=== PATIENT | female | born 1995 | race Caucasian/White ===

== ENCOUNTER 2017-10-29 21:32 | Emergency (ER) | payer OTHER ==
[~2017-10-29] VITALS: Ht 167.6 cm; Wt 68.2 kg
[2017-10-29] MEDS ORDERED: AZO95TAB PO (21:41)
[2017-10-29] MEDS ORDERED: propranolol PO (21:41)
[2017-10-29] MEDS ORDERED: SERT25TA PO (21:41)
[2017-10-29] MEDS ORDERED: cranberry PO (21:41)
[2017-10-29] MEDS ORDERED: CIPR-249 PO (22:35)
[2017-10-29] MEDS ORDERED: DIFL150T PO (22:36)
[2017-10-29] MEDS ORDERED: CIPROFLOXACIN 500 MG TAB PO ONE (22:45)
[2017-10-29] MEDS ORDERED: PHENAZOPYRIDINE 100 MG TAB PO ONE (22:45)
[2017-10-29 22:55] VITALS: BP 108/59
== END 2017-10-29 23:05 | disposition home or self-care (01) ==
LOC: M ED 21:32
DX: N10 Acute pyelonephritis (principal); F41.9 Anxiety disorder, unspecified; Z79.899 Other long term (current) drug therapy

== ENCOUNTER → 2017-12-08 | Outpatient (REF) | payer OTHER | LOC: M LAB REF 11:56 | DX: N39.0 Urinary tract infection, site not specified (principal) ==

== ENCOUNTER 2017-12-20 10:57 | Emergency (ER) | payer OTHER ==
[2017-12-20] MEDS: diphenhydrAMINE INJ 50MG/ML VIAL (J1200) IV (12:35)
[2017-12-20] MEDS: NS 1,000 ML IV (12:35)
[2017-12-20] MEDS: METOCLOPRAMIDE INJ 10MG/2ML VIAL (J2765) IV (12:35)
[2017-12-20] MEDS: KETOROLAC 30 MG/ML VIAL (J1885) IV (12:36)
[2017-12-20 12:38] LABS: BASO % 0.4 % (0.0-1.0); EOS % 0.2 % (0.0-3.0); HEMATOCRIT 43.5 % (36.0-47.0); HEMOGLOBIN 14.3 g/dl (12.0-16.0); IMMATURE GRANULOCYTE # 0.1 10^3/uL (0-0); IMMATURE GRANULOCYTE % 0.6 % (0-0); LYMPH # 1.3 10^3/uL (1.5-6.5); LYMPH % 12.6 % (24.0-44.0); MEAN CORPUSCULAR HEMOGLOBIN 29.9 pg (27.0-33.0); MEAN CORPUSCULAR HGB CONC 32.9 g/dl (32.0-36.5); MONO # 0.3 10^3/uL (0.0-0.8); MONO % 3.1 % (0.0-5.0); NEUTROPHILS # 8.7 10^3/uL (1.8-7.7); NEUTROPHILS % 83.1 % (36.0-66.0); PLATELET COUNT, AUTOMATED 293 10^3/uL (150-450); RED BLOOD COUNT 4.78 10^6/uL (4.00-5.40); RED CELL DISTRIBUTION WIDTH 12.3 % (11.5-14.5); WHITE BLOOD COUNT 10.4 10^3/uL (4.0-10.0)
[2017-12-20 12:59] LABS: CONTROL LINE HCG INT CTR LINE PRESENT; HCG, SERUM QUALITATIVE NEGATIVE (NEGATIVE)
[2017-12-20 13:13] LABS: ANION GAP 6 MEQ/L (8-16); BLOOD UREA NITROGEN 9 MG/DL (7-18); CALCIUM LEVEL 8.8 MG/DL (8.5-10.1); CARBON DIOXIDE LEVEL 22 MEQ/L (21-32); CHLORIDE LEVEL 109 MEQ/L (98-107); GLOMERULAR FILTRATION RATE > 60.0 (>60); GLUCOSE, FASTING 77 MG/DL (70-100); MAGNESIUM LEVEL 2.2 MG/DL (1.8-2.4); SODIUM LEVEL 137 MEQ/L (136-145); THYROID STIMULATING HORMONE 0.416 uIU/ML (0.358-3.740)
[2017-12-20 13:23] LABS: POTASSIUM SERUM 5.2 MEQ/L (3.5-5.1)
== END 2017-12-20 15:07 | disposition home or self-care (01) ==
LOC: M ED 10:57
DX: G43.909 Migraine, unspecified, not intractable, without status migrainosus (principal)
CPT/HCPCS: J1200

== ENCOUNTER → 2017-12-28 | Outpatient (CLI) | payer OTHER ==
[2017-12-28 15:33] LABS: HEMATOCRIT 42.9 % (36.0-47.0); HEMOGLOBIN 14.1 g/dl (12.0-16.0); MEAN CORPUSCULAR HEMOGLOBIN 30.1 pg (27.0-33.0); MEAN CORPUSCULAR HGB CONC 32.9 g/dl (32.0-36.5); MEAN CORPUSCULAR VOLUME 91.5 fl (80.0-96.0); PLATELET COUNT, AUTOMATED 303 10^3/uL (150-450); RED BLOOD COUNT 4.69 10^6/uL (4.00-5.40); RED CELL DISTRIBUTION WIDTH 12.3 % (11.5-14.5); WHITE BLOOD COUNT 7.1 10^3/uL (4.0-10.0)
[2017-12-28 16:07] LABS: ALBUMIN 4.5 GM/DL (3.2-5.2); ALBUMIN/GLOBULIN RATIO 1.29 (1.00-1.93); ALKALINE PHOSPHATASE 82 U/L (45-117); ALT/SGPT 22 U/L (12-78); ANION GAP 9 MEQ/L (8-16); AST/SGOT 12 U/L (7-37); BILIRUBIN,TOTAL 1.5 MG/DL (0.2-1.0); BLOOD UREA NITROGEN 11 MG/DL (7-18); CALCIUM LEVEL 9.1 MG/DL (8.5-10.1); CARBON DIOXIDE LEVEL 27 MEQ/L (21-32); CHLORIDE LEVEL 106 MEQ/L (98-107); CREATININE FOR GFR 0.69 MG/DL (0.55-1.30); FREE T4 1.18 NG/DL (0.76-1.46); GLOMERULAR FILTRATION RATE > 60.0 (>60); GLUCOSE, FASTING 82 MG/DL (70-100); POTASSIUM SERUM 4.2 MEQ/L (3.5-5.1); SODIUM LEVEL 142 MEQ/L (136-145); THYROID STIMULATING HORMONE 0.672 uIU/ML (0.358-3.740)
[2017-12-28 16:25] LABS: TOTAL 25(OH) VITAMIN D 26.5 NG/ML (30.0-100.0)
[2017-12-28 16:26] LABS: FOLATE > 24.0 NG/ML; VITAMIN B12 LEVEL 514 PG/ML
== END ==
LOC: M LAB 14:59
DX: R20.2 Paresthesia of skin (principal); G43.009 Migraine without aura, not intractable, without status migrainosus; K58.0 Irritable bowel syndrome with diarrhea

== ENCOUNTER → 2018-06-21 | Outpatient (REF) | payer OTHER ==
[2018-06-21 22:15] LABS: CHLAMYDIA DNA AMPLIFICATION NEGATIVE (NEGATIVE); GC DNA AMPLIFICATION NEGATIVE (NEGATIVE)
== END ==
LOC: M LAB REF 16:30
DX: N39.0 Urinary tract infection, site not specified (principal)
CPT/HCPCS: 87086

== ENCOUNTER → 2018-07-18 | Outpatient (REF) | payer OTHER ==
[2018-07-18 09:59] LABS: BACTERIA, URINE AUTO 1+ (NEGATIVE); RBC, URINE AUTO 1 /HPF (0-3); SQUAMOUS EPITHELIAL CELL UR AU 5 /HPF (0-6); WBC, URINE AUTO 84 /HPF (0-3)
== END ==
LOC: M LAB REF 09:22
DX: N39.0 Urinary tract infection, site not specified (principal)
CPT/HCPCS: 81015

== ENCOUNTER 2018-10-06 17:55 | Emergency (ER) | payer OTHER ==
[2018-10-06 19:14] LABS: BASO % 0.4 % (0.0-1.0); EOS # 0.1 10^3/uL (0.0-0.50); EOS % 1.3 % (0.0-3.0); HEMATOCRIT 41.5 % (36.0-47.0); HEMOGLOBIN 13.7 g/dl (12.0-15.5); IMMATURE GRANULOCYTE % 0.3 % (0-3.0); LYMPH # 1.6 10^3/uL (1.5-6.5); LYMPH % 16.9 % (24.0-44.0); MEAN CORPUSCULAR HEMOGLOBIN 30.3 pg (27.0-33.0); MEAN CORPUSCULAR VOLUME 91.8 fl (80.0-96.0); MONO # 0.6 10^3/uL (0.0-0.8); MONO % 6.4 % (0.0-5.0); NEUTROPHILS # 7.1 10^3/uL (1.8-7.7); NEUTROPHILS % 74.7 % (36.0-66.0); PLATELET COUNT, AUTOMATED 292 10^3/uL (150-450); RED BLOOD COUNT 4.52 10^6/uL (4.00-5.40); RED CELL DISTRIBUTION WIDTH 12.5 % (11.5-14.5); WHITE BLOOD COUNT 9.5 10^3/uL (4.0-10.0)
[2018-10-06 19:24] LABS: CONTROL LINE HCG INT CTR LINE PRESENT; HCG, SERUM QUALITATIVE NEGATIVE (NEGATIVE)
[2018-10-06 19:51] LABS: ANION GAP 6 MEQ/L (8-16); BLOOD UREA NITROGEN 8 MG/DL (7-18); CALCIUM LEVEL 9.2 MG/DL (8.5-10.1); CARBON DIOXIDE LEVEL 28 MEQ/L (21-32); CHLORIDE LEVEL 107 MEQ/L (98-107); CK-MB VALUE MASS < 1.0 NG/ML (<3.6); CPK CREATINE PHOSPHOKINASE 131 U/L (26-192); CREATININE FOR GFR 0.87 MG/DL (0.55-1.30); ETHYL ALCOHOL (ETHANOL) < 0.003 % (0.000-0.010); GLOMERULAR FILTRATION RATE > 60.0 (>60); GLUCOSE, FASTING 83 MG/DL (70-100); MAGNESIUM LEVEL 2.3 MG/DL (1.8-2.4); MB/CK RELATIVE INDEX 0.76 (< OR =4); POTASSIUM SERUM 4.7 MEQ/L (3.5-5.1); SODIUM LEVEL 141 MEQ/L (136-145); THYROID STIMULATING HORMONE 0.299 uIU/ML (0.358-3.740); TROPONIN I < 0.02 NG/ML (< 0.10)
[2018-10-06 20:01] LABS: AMPHETAMINES LEVEL URINE NEGATIVE (NEGATIVE); BARBITURATES URINE NEGATIVE (NEGATIVE); BENZODIAZEPINES URINE NEGATIVE (NEGATIVE); CANNABINOIDS URINE POSITIVE (NEGATIVE); COCAINE METABOLITE URINE NEGATIVE (NEGATIVE); METHADONE URINE NEGATIVE (NEGATIVE); OPIATES URINE NEGATIVE (NEGATIVE); PHENCYCLIDINE URINE NEGATIVE (NEGATIVE)
[2018-10-06] MEDS: NS 1,000 ML IV ×2 (20:42→21:50)
[2018-10-06 21:23] LABS: FREE T4 1.14 NG/DL (0.76-1.46)
[2018-10-06] MEDS: KETOROLAC 30 MG/ML VIAL (J1885) IV (21:40)
[2018-10-06] MEDS: diphenhydrAMINE INJ 50MG/ML VIAL (J1200) IV (21:40)
== END 2018-10-06 23:12 | disposition home or self-care (01) ==
LOC: M ED 17:55
DX: G43.909 Migraine, unspecified, not intractable, without status migrainosus (principal); I95.1 Orthostatic hypotension; K58.9 Irritable bowel syndrome, unspecified; Z98.890 Other specified postprocedural states; Z79.899 Other long term (current) drug therapy; Z82.0 Family history of epilepsy and other diseases of the nervous system
CPT/HCPCS: J1200

== ENCOUNTER 2018-11-21 14:11 | Emergency (ER) | payer OTHER ==
[~2018-11-21] VITALS: Ht 167.6 cm; Wt 61.1 kg
[~2018-11-21 14:11] MED LIST: AZO95TAB PO; CIPR-249 PO; DIFL150T PO; SERT25TA PO; cranberry PO; propranolol PO
--- NOTE | 2018-11-21 15:02 | REP ---
CT Head without contrast HISTORY: Right facial numbness COMPARISON: 10/06/2018 There is no intraparenchymal hemorrhage, acute infarct, mass or midline shift. The ventricular system is normal in appearance. There is no extra cerebral collection. There is no fracture. The visualized sinuses are clear. IMPRESSION: There is no intracranial lesion. Electronically Signed by Eriberto Oakes MD 11/21/2018 02:54 P
[2018-11-21] MEDS ORDERED: diphenhydrAMINE INJ 50MG/ML VIAL (J1200) IV STA (15:06)
[2018-11-21 15:08] LABS: BASO # 0.1 10^3/uL (0.0-0.2); BASO % 0.6 % (0.0-1.0); EOS # 0.1 10^3/uL (0.0-0.50); EOS % 1.2 % (0.0-3.0); HEMATOCRIT 42.6 % (36.0-47.0); HEMOGLOBIN 14.1 g/dl (12.0-15.5); LYMPH # 2.5 10^3/uL (1.5-6.5); LYMPH % 27.4 % (24.0-44.0); MEAN CORPUSCULAR HEMOGLOBIN 30.8 pg (27.0-33.0); MEAN CORPUSCULAR HGB CONC 33.1 g/dl (32.0-36.5); MONO # 0.7 10^3/uL (0.0-0.8); MONO % 7.8 % (0.0-5.0); NEUTROPHILS # 5.6 10^3/uL (1.8-7.7); NEUTROPHILS % 62.4 % (36.0-66.0); PLATELET COUNT, AUTOMATED 260 10^3/uL (150-450); RED BLOOD COUNT 4.58 10^6/uL (4.00-5.40)
[2018-11-21] MEDS ORDERED: PROMETHAZINE INJ 25 MG/ML VIAL (J2550) IV ONE (15:15)
[2018-11-21] MEDS ORDERED: KETOROLAC 30 MG/ML VIAL (J1885) IV ONE (15:15)
[2018-11-21 15:47] LABS: ALBUMIN 4.1 GM/DL (3.2-5.2); ALT/SGPT 55 U/L (12-78); BILIRUBIN,DIRECT 0.3 MG/DL (0.0-0.2); BILIRUBIN,TOTAL 1.4 MG/DL (0.2-1.0); BLOOD UREA NITROGEN 8 MG/DL (7-18); CALCIUM LEVEL 9.1 MG/DL (8.5-10.1); CARBON DIOXIDE LEVEL 24 MEQ/L (21-32); CHLORIDE LEVEL 106 MEQ/L (98-107); CK-MB VALUE MASS < 1.0 NG/ML (<3.6); CPK CREATINE PHOSPHOKINASE 9403 U/L (26-192); CREATININE FOR GFR 0.84 MG/DL (0.55-1.30); GLOMERULAR FILTRATION RATE > 60.0 (>60); GLUCOSE, FASTING 80 MG/DL (70-100); MB/CK RELATIVE INDEX 0.01 (< OR =4); POTASSIUM SERUM 4.1 MEQ/L (3.5-5.1); SODIUM LEVEL 139 MEQ/L (136-145); THYROID STIMULATING HORMONE 0.631 uIU/ML (0.358-3.740); TOTAL PROTEIN 7.5 GM/DL (6.4-8.2); TROPONIN I < 0.02 NG/ML (< 0.10)
[2018-11-21 17:30] VITALS: BP 100/56
--- NOTE | 2018-11-21 20:25 | ECGEPIP ---
Stationary ECG Study [facility] - ED Test Date: 2018-11-21 Pat Name: ERNESTO UNDERWOOD Department: Room: - Gender: F Long Term: TC : 1995 Requested By: MILO Vega Order Number: [id number] Reading MD: Misti Chirinos Measurements Intervals Thornton Rate: 57 P: 57 CT: 126 QRS: 45 QRSD: 85 T: 14 QT: 425 QTc: 414 Interpretive Statements SINUS BRADYCARDIA SIMILAR 09/26/18 Electronically Signed On 11-21-2018 20:24:47 EST by Misti Chirinos
[2018-11-23 11:42] LABS: HEPATITIS A ANTIBODY IGM NEGATIVE (NEGATIVE); HEPATITIS B CORE ANTIBODY IGM NEGATIVE (NEGATIVE); HEPATITIS B SURFACE ANTIGEN NEGATIVE (NEGATIVE); HEPATITIS C VIRUS ABY INDEX 0.1 INDEX (<0.8); HIV 1&2 SCREEN CENTAUR NEGATIVE (NEGATIVE)
== END 2018-11-21 17:52 | disposition home or self-care (01) ==
LOC: M ED 14:11
DX: G43.809 Other migraine, not intractable, without status migrainosus (principal); Z79.899 Other long term (current) drug therapy
CPT/HCPCS: 70450; 80048; 80076; 82550; 82553; 84443; 84484; 85025; 86705; 86709; 86803; 87340; 87389; 93005; 93041; 94760; 96374; 96375; 99285; J1200; J1885

== ENCOUNTER → 2018-12-12 | Outpatient (REF) | payer OTHER ==
[2018-12-12 11:57] LABS: APPEARANCE, URINE CLOUDY (CLEAR); BACTERIA, URINE AUTO NEGATIVE (NEGATIVE); BILIRUBIN, URINE AUTO NEGATIVE (NEGATIVE); BLOOD, URINE BLOOD 2+ (NEGATIVE); COLOR, URINE YELLOW (YELLOW); GLUCOSE, URINE (UA) AUTO NEGATIVE (NEGATIVE); KETONE, URINE AUTO NEGATIVE (NEGATIVE); LEUKOCYTE ESTERASE, URINE AUTO 2+ (NEGATIVE); MUCUS, URINE SMALL (NEGATIVE); NITRITE, URINE AUTO NEGATIVE (NEGATIVE); PROTEIN, URINE AUTO NEGATIVE (NEGATIVE); RBC, URINE AUTO 16 /HPF (0-3); SPECIFIC GRAVITY URINE AUTO 1.021 (1.002-1.035); SQUAMOUS EPITHELIAL CELL UR AU 6 /HPF (0-6); WBC, URINE AUTO TNTC /HPF (0-3)
== END ==
LOC: M LAB REF 11:14
PROVIDERS: ATTEND Physician Assistant
DX: N39.0 Urinary tract infection, site not specified (principal)

== ENCOUNTER → 2018-12-17 | Outpatient (REF) | payer OTHER ==
[2018-12-17 22:53] LABS: CHLAMYDIA DNA AMPLIFICATION NEGATIVE (NEGATIVE); GC DNA AMPLIFICATION NEGATIVE (NEGATIVE)
== END ==
LOC: M LAB REF 18:13
PROVIDERS: ATTEND Family Medicine
DX: Z11.3 Encounter for screening for infections with a predominantly sexual mode of transmission (principal)

== ENCOUNTER → 2019-01-29 | Outpatient (REF) | payer OTHER | LOC: M LAB REF 11:43 | PROVIDERS: ATTEND Physician Assistant | DX: R30.0 Dysuria (principal) ==

== ENCOUNTER → 2019-04-10 | Outpatient (CLI) | payer OTHER ==
[~2019-04-10] MED LIST changes: -SERT25TA PO; +SERT25TA85 PO
== END ==
LOC: M SMT 09:49
PROVIDERS: ATTEND Advanced Practice Midwife
DX: Z31.438 Encounter for other genetic testing of female for procreative management (principal)

== ENCOUNTER → 2019-05-21 | Outpatient (REF) | payer OTHER | LOC: M LAB REF 17:12 | PROVIDERS: ATTEND Physician Assistant | DX: N39.0 Urinary tract infection, site not specified (principal) ==

== ENCOUNTER → 2019-06-16 | Outpatient (REF) | payer OTHER | LOC: M LAB REF 10:13 | PROVIDERS: ATTEND Physician Assistant | DX: R30.0 Dysuria (principal) ==

== ENCOUNTER → 2019-12-10 | Outpatient (CLI) | payer OTHER ==
[2019-12-10 13:56] LABS: BASO # 0.1 10^3/uL (0.0-0.2); BASO % 0.6 % (0.0-1.0); EOS # 0.1 10^3/uL (0.0-0.5); EOS % 0.8 % (0.0-3.0); HEMOGLOBIN 12.8 g/dl (12.0-15.5); LYMPH # 1.9 10^3/uL (1.5-5.0); LYMPH % 19.1 % (24.0-44.0); MEAN CORPUSCULAR HEMOGLOBIN 32.2 pg (27.0-33.0); MEAN CORPUSCULAR HGB CONC 33.7 g/dl (32.0-36.5); MEAN CORPUSCULAR VOLUME 95.7 fl (80.0-96.0); MONO # 0.6 10^3/uL (0.0-0.8); MONO % 6.6 % (0.0-5.0); NEUTROPHILS % 72.1 % (36.0-66.0); PLATELET COUNT, AUTOMATED 232 10^3/uL (150-450); RED BLOOD COUNT 3.97 10^6/uL (4.00-5.40); WHITE BLOOD COUNT 9.8 10^3/uL (4.0-10.0)
[2019-12-10 14:33] LABS: TOTAL 25(OH) VITAMIN D 31.1 NG/ML (30.0-100.0)
--- NOTE | 2019-12-10 18:58 | REP ---
FIRST TRIMESTER OB ULTRASOUND: 12/10/2019. Comparison: 10/16/2019. Previous study showed a gestational sac without yolk sac or pole and was at about 4 weeks 4 days size. Today's study shows a single intrauterine gestation with gestational sac in the body and fundus of the uterus. Uterus is anteverted. There is a pole with a crown-rump length of 6.5 cm corresponding to 12 weeks 6 days size and matching LMP. heart activity noted at 164 biometry BPD 2.3 cm 13 weeks 6 days HC 8.1 cm 13 weeks 3 days HC 8.1 cm 13 weeks 3 days AC 6.2 cm 13 weeks FL 1.1 cm 13 weeks 2 days HL 1.2 cm 13 weeks. This gives average ultrasound age 13 weeks 2 days with EDC 06/14/2020. Measurement ratios normal. The heart activity 164 limited anatomy evaluation due to early gestational age. No gross anomalies. No subchorionic bleed or pelvic free fluid. Impression: 1. Single intrauterine gestation at 13 weeks 2 days by composite ultrasound criteria with EDC 06/14/2020 based on that exam, 06/17/2020, based on LMP. 2. heart rate 164 regular. No subchorionic bleed, pelvic mass or free fluid. 3. No abnormalities in the cul-de-sac or adnexal regions. Electronically Signed by Bunny Stevens MD 12/10/2019 07:27 P
[2019-12-11 10:10] LABS: HEPATITIS B SURFACE ANTIBODY NEGATIVE (POSITIVE)
[2019-12-11 10:19] LABS: RUBELLA IgG QUALITATIVE EQUIVOCAL (IMMUNE)
[2019-12-11 10:49] LABS: HEPATITIS C VIRUS ABY INDEX < 0.0 INDEX (<0.8); HIV 1&2 SCREEN CENTAUR NEGATIVE (NEGATIVE)
== END ==
LOC: M RAD 12:43
PROVIDERS: ATTEND Advanced Practice Midwife
DX: Z36.89 Encounter for other specified antenatal screening (principal); Z3A.12 12 weeks gestation of pregnancy

== ENCOUNTER 2020-01-31 19:13 | Emergency (ER) | payer OTHER ==
[~2020-01-31] VITALS: Ht 167.6 cm; Wt 67.1 kg
[2020-01-31] MEDS ORDERED: diphenhydrAMINE INJ 50MG/ML VIAL (J1200) IV ONE (19:45)
[2020-01-31] MEDS ORDERED: ONDANSETRON 4MG/2ML VIAL (J2405) IV ONE (19:45)
[2020-01-31] MEDS ORDERED: NS 1,000 ML IV ONE (19:45)
[2020-01-31 20:58] LABS: BASO # 0.1 10^3/uL (0.0-0.2); BASO % 0.6 % (0.0-1.0); EOS # 0.2 10^3/uL (0.0-0.5); EOS % 1.9 % (0.0-3.0); HEMATOCRIT 39.7 % (36.0-47.0); HEMOGLOBIN 13.2 g/dl (12.0-15.5); LYMPH # 2.3 10^3/uL (1.5-5.0); LYMPH % 22.6 % (24.0-44.0); MEAN CORPUSCULAR HEMOGLOBIN 31.5 pg (27.0-33.0); MEAN CORPUSCULAR HGB CONC 33.2 g/dl (32.0-36.5); MEAN CORPUSCULAR VOLUME 94.7 fl (80.0-96.0); MONO # 0.7 10^3/uL (0.0-0.8); NEUTROPHILS # 6.8 10^3/uL (1.5-8.5); NEUTROPHILS % 66.8 % (36.0-66.0); PLATELET COUNT, AUTOMATED 245 10^3/uL (150-450); RED BLOOD COUNT 4.19 10^6/uL (4.00-5.40); WHITE BLOOD COUNT 10.2 10^3/uL (4.0-10.0)
[2020-01-31 21:22] LABS: ALBUMIN 3.1 GM/DL (3.2-5.2); ALT/SGPT 18 U/L (12-78); BILIRUBIN,DIRECT < 0.1 MG/DL (0.0-0.2); BILIRUBIN,TOTAL 0.4 MG/DL (0.2-1.0); BLOOD UREA NITROGEN 11 MG/DL (7-18); CALCIUM LEVEL 8.1 MG/DL (8.5-10.1); CARBON DIOXIDE LEVEL 21 MEQ/L (21-32); CHLORIDE LEVEL 110 MEQ/L (98-107); CREATININE FOR GFR 0.69 MG/DL (0.55-1.30); GLOMERULAR FILTRATION RATE > 60.0 (>60); GLUCOSE, FASTING 79 MG/DL (70-100); MAGNESIUM LEVEL 1.8 MG/DL (1.8-2.4); POTASSIUM SERUM 4.2 MEQ/L (3.5-5.1); SODIUM LEVEL 139 MEQ/L (136-145); TOTAL PROTEIN 6.5 GM/DL (6.4-8.2)
[2020-01-31] MEDS ORDERED: NORCO, ANEXSIA 5/325MG TABLET (HYDROcodone/ACETAMINOPHEN) PO ONE (22:00)
[2020-01-31] MEDS ORDERED: ONDA4TAB6 PO (23:08)
[2020-01-31 23:37] VITALS: BP 103/57
== END 2020-01-31 23:38 | disposition home or self-care (01) ==
LOC: M ED 19:13
DX: O99.352 Diseases of the nervous system complicating pregnancy, second trimester (principal); G43.709 Chronic migraine without aura, not intractable, without status migrainosus; Z3A.21 21 weeks gestation of pregnancy; O21.9 Vomiting of pregnancy, unspecified; O99.612 Diseases of the digestive system complicating pregnancy, second trimester; K58.9 Irritable bowel syndrome, unspecified; O99.342 Other mental disorders complicating pregnancy, second trimester; F41.9 Anxiety disorder, unspecified
CPT/HCPCS: 36415; 80048; 80076; 83735; 85025; 96374; 96375; 99284; J1200; J2405

== ENCOUNTER → 2020-02-21 | Outpatient (REF) | payer OTHER ==
[~2020-02-21] MED LIST changes: +ONDA4TAB6 PO
== END ==
LOC: M LAB REF 15:21
PROVIDERS: ATTEND Physician Assistant
DX: N39.0 Urinary tract infection, site not specified (principal)

== ENCOUNTER 2020-03-01 02:18 | Outpatient (CLI) | payer OTHER ==
[~2020-03-01] VITALS: Ht 167.6 cm; Wt 70.9 kg
[2020-03-01 02:40] VITALS: BP 110/64
[2020-03-01] MEDS ORDERED: TUMS500C PO (02:53)
[2020-03-01] MEDS ORDERED: PRENTAB9 PO (02:53)
[2020-03-01] MEDS ORDERED: MACR100C43 PO (02:55)
[2020-03-01] MEDS ORDERED: PYRI1TAB5 PO (02:55)
[2020-03-01] MEDS ORDERED: LACTATED RINGER'S 1000 ML IV STA (03:25)
[2020-03-01] MEDS ORDERED: LR 1,000 ML IV SCH (03:25)
[2020-03-01] MEDS ORDERED: PERCOCET 5MG/325MG TAB PO PRN (03:30)
[2020-03-01 03:59] LABS: BASO # 0.1 10^3/uL (0.0-0.2); BASO % 0.6 % (0.0-1.0); EOS # 0.3 10^3/uL (0.0-0.5); EOS % 1.8 % (0.0-3.0); HEMATOCRIT 37.2 % (36.0-47.0); HEMOGLOBIN 12.3 g/dl (12.0-15.5); LYMPH # 2.2 10^3/uL (1.5-5.0); LYMPH % 15.6 % (24.0-44.0); MEAN CORPUSCULAR HGB CONC 33.1 g/dl (32.0-36.5); MEAN CORPUSCULAR VOLUME 96.9 fl (80.0-96.0); MONO # 0.9 10^3/uL (0.0-0.8); MONO % 6.6 % (0.0-5.0); NEUTROPHILS # 10.2 10^3/uL (1.5-8.5); NEUTROPHILS % 72.3 % (36.0-66.0); PLATELET COUNT, AUTOMATED 240 10^3/uL (150-450); RED BLOOD COUNT 3.84 10^6/uL (4.00-5.40); WHITE BLOOD COUNT 14.1 10^3/uL (4.0-10.0)
--- NOTE | 2020-03-01 04:16 | REPVR ---
PROCEDURE INFORMATION: Exam: US Retroperitoneal Limited, Kidneys Exam date and time: 03/01/2020 4:06 AM Age: 24 years old Clinical indication: Abdominal pain; Flank; Right; ; Additional info: 24 weeks , right flank pain TECHNIQUE: Imaging protocol: Real-time ultrasound of the retroperitoneum with image documentation. Examination was focused on the kidneys. COMPARISON: No relevant prior studies available. FINDINGS: Right kidney: The right kidney measures 11.1 cm in. The echogenicity is normal. There is mild hydronephrosis. No stones are identified. Left kidney: The left kidney measures 10.4 cm in length. The echogenicity is normal. There is a nonshadowing echogenic focus in the midpole which may represent a small nonobstructing stone. Uterus: A live fetus is seen within the gravid uterus, but the was not fully assessed. A heartbeat was detected with a rate of 158 bpm. The lie is vertex. Bladder: The bladder is unremarkable. No stones identified. Bilateral ureteral jets are identified. IMPRESSION: Mild right-sided hydronephrosis. No obstructing stones identified. Electronically signed by: Bianca Boyer On 03/01/2020 04:15:52 AM
[2020-03-01 04:32] LABS: ALBUMIN 2.8 GM/DL (3.2-5.2); ALT/SGPT 26 U/L (12-78); BILIRUBIN,TOTAL 0.4 MG/DL (0.2-1.0); BLOOD UREA NITROGEN 12 MG/DL (7-18); CALCIUM LEVEL 8.5 MG/DL (8.5-10.1); CARBON DIOXIDE LEVEL 24 MEQ/L (21-32); CHLORIDE LEVEL 107 MEQ/L (98-107); CREATININE FOR GFR 0.53 MG/DL (0.55-1.30); GLOMERULAR FILTRATION RATE > 60.0 (>60); GLUCOSE, FASTING 65 MG/DL (70-100); POTASSIUM SERUM 5.1 MEQ/L (3.5-5.1); SODIUM LEVEL 139 MEQ/L (136-145); TOTAL PROTEIN 6.5 GM/DL (6.4-8.2)
[2020-03-01 05:11] VITALS: BP 98/51
[2020-03-01] MEDS ORDERED: NITR-67 PO (06:28)
[2020-03-01] MEDS ORDERED: OXYC1TAB23 PO (06:29)
--- NOTE | 2020-03-01 09:05 | HPE ---
DATE OF ADMISSION: 03/01/2020 24-year-old 2, para 0-0-1-0 female at 24 weeks gestation who presents with constant severe right flank pain that radiates to the front for the last 24 hours. She has had some nausea. No vaginal bleeding. She was treated for a urinary tract infection on February 21, 2020 with Macrobid. Urine culture subsequently did confirm E. Coli in the urinary tract infection. She denies fevers. Her care is currently through a director of player personnel in [place], [place]. MEDICAL HISTORY: 1. Migraines. 2. Irritable bowel syndrome. 3. Frequent urinary tract infections. 4. Jonathan-Danlos syndrome. SURGICAL HISTORY: 1. diagnostic laparoscopy for endometriosis, 2017. ALLERGIES: No known drug allergies. SOCIAL HISTORY: She is . She denies cigarettes, alcohol or drug use. She lives in [place]. FAMILY HISTORY: Noncontributory. PHYSICAL EXAMINATION: Blood pressure 120/70, pulse 80, afebrile. She appears moderately uncomfortable. Head and neck exam normal. Lungs clear. Heart regular rate and rhythm . Abdomen is nontender, positive right CVA tenderness. Extremities nontender. LABS: Creatinine 0.53, white blood count 14.1. Ultrasound reveals mild right hydronephrosis, evidence of possible kidney stone on the left side. ASSESSMENT: 24-year-old G2, P0-0-1-0 female at 24 weeks gestation who presents with probable right nephrolithiasis as well as urinary tract infection. PLAN: Clinically this appears to be a stone. The patient is on Pyridium so a repeat urinalysis was not sent at this visit. She had a very recent urinalysis and culture sent. Plan is to manage symptomatically with pain management for probable kidney stones. Due to history of recurrent frequent UTIs, would recommend suppression with Macrobid daily throughout . Recommend she seek medical care for her due to this complicating factor. MTDD
== END 2020-03-01 06:44 | disposition home or self-care (01) ==
LOC: M LDO 02:18
PROVIDERS: ATTEND Specialist
DX: O26.892 Other specified pregnancy related conditions, second trimester (principal); N20.0 Calculus of kidney; O23.42 Unspecified infection of urinary tract in pregnancy, second trimester; Z3A.24 24 weeks gestation of pregnancy; O99.612 Diseases of the digestive system complicating pregnancy, second trimester; K58.9 Irritable bowel syndrome, unspecified
CPT/HCPCS: 76775; 80053; 85025; 96360; 96361; G0378; G0463

== ENCOUNTER → 2020-03-13 | Outpatient (CLI) | payer OTHER ==
[~2020-03-13] MED LIST changes: +MACR100C43 PO; +NITR-67 PO; +OXYC1TAB23 PO; +PRENTAB9 PO; +PYRI1TAB5 PO; +TUMS500C PO
[2020-03-18 00:10] LABS: HSV IgM TYPES 1&2 0.92 Ratio (0.00-0.90); HSV TYPE I IgG SPECIFIC <0.91 index (0.00-0.90); HSV TYPE II IgG SPECIFIC <0.91 index (0.00-0.90)
== END ==
LOC: M LAB 03-11 15:35
PROVIDERS: ATTEND Advanced Practice Midwife
DX: Z34.92 Encounter for supervision of normal pregnancy, unspecified, second trimester (principal)

== ENCOUNTER 2020-05-04 13:43 | Inpatient (IN) | payer OTHER ==
[~2020-05-04] VITALS: Ht 167.6 cm; Wt 71.9 kg
[2020-05-04] VITALS (13 sets, daily range): BP systolic 99–131; BP diastolic 54–77
[2020-05-04] MEDS ORDERED: LR 1,000 ML IV SCH (14:24)
[2020-05-04] MEDS ORDERED: LACTATED RINGER'S 1000 ML IV STA (14:24)
[2020-05-04] MEDS ORDERED: MAG Sulf (L&D) 4 GM/100 ML 4 GM in IV 1 EA IV ONE (14:30)
[2020-05-04] MEDS ORDERED: MAG Sulf (OBGYN) 20GM/500ML 20,000 MG in IV 1 EA IV SCH (14:44)
[2020-05-04 14:56] LABS: BASO # 0.1 10^3/uL (0.0-0.2); BASO % 0.4 % (0.0-1.0); EOS # 0.1 10^3/uL (0.0-0.5); HEMATOCRIT 38.2 % (36.0-47.0); HEMOGLOBIN 12.8 g/dl (12.0-15.5); LYMPH # 1.6 10^3/uL (1.5-5.0); LYMPH % 13.8 % (24.0-44.0); MEAN CORPUSCULAR HEMOGLOBIN 31.2 pg (27.0-33.0); MEAN CORPUSCULAR HGB CONC 33.5 g/dl (32.0-36.5); MEAN CORPUSCULAR VOLUME 93.2 fl (80.0-96.0); MONO # 0.8 10^3/uL (0.0-0.8); MONO % 6.9 % (0.0-5.0); NEUTROPHILS # 8.7 10^3/uL (1.5-8.5); NEUTROPHILS % 75.5 % (36.0-66.0); PLATELET COUNT, AUTOMATED 231 10^3/uL (150-450); WHITE BLOOD COUNT 11.5 10^3/uL (4.0-10.0)
[2020-05-04] MEDS ORDERED: BETAMETHASONE SOLUSPAN 6MG/ML 5ML VIAL (J0702 PER 3MG) IM SCH (15:00)
[2020-05-04] MEDS ORDERED: AMPICILLIN 2 GM VIAL (J0290 PER 500MG) As Ordered ONE (15:51)
[2020-05-04 15:57] LABS: ALT/SGPT 11 U/L (12-78); BILIRUBIN,TOTAL 0.5 MG/DL (0.2-1.0); CREATININE FOR GFR 0.22 MG/DL (0.55-1.30); GLOMERULAR FILTRATION RATE > 60.0 (>60); LDH LACTATE DEHYDROGENASE 141 U/L (84-246); URIC ACID 2.3 MG/DL (2.6-6.0)
[2020-05-04] MEDS ORDERED: AMPICILLIN SOD 2 GM in D5W MINI-BAG PLUS 100 ML IV ONE (16:00)
[2020-05-04] MEDS ORDERED: MORPHINE PRES-FREE INJ 10 MG/10 ML VIAL (J2274) As Ordered ONE (17:37)
[2020-05-04] MEDS ORDERED: OXYTOCIN INJ 10 UNITS/ML VIAL (J2590) As Ordered ONE (17:39)
[2020-05-04] MEDS ORDERED: ceFAZolin SOD 1 GM in D5W MINI-BAG PLUS 50 ML IV ONE (17:45)
[2020-05-04] MEDS ORDERED: BICITRA 30ML SOLN UDC PO ONE (17:45)
[2020-05-04] MEDS ORDERED: diphenhydrAMINE 50MG/ML VIAL (J1200) IV PRN (17:59)
[2020-05-04] MEDS ORDERED: ONDANSETRON 4MG/2ML VIAL IV PRN (17:59)
[2020-05-04] MEDS ORDERED: METOCLOPRAMIDE INJ 10MG/2ML VIAL (J2765 PER 1) IV PRN (17:59)
[2020-05-04] MEDS ORDERED: NALOXONE INJ 0.4MG/1ML VIAL (J2310 PER 1MG) IV PRN ×2 (17:59)
[2020-05-04] MEDS ORDERED: NALBUPHINE HCL 10 MG/ML AMP (J2300) IV PRN (17:59)
[2020-05-04] MEDS ORDERED: ePHEDrine SULFATE 25 MG/5 ML(5MG/ML) SYRINGE As Ordered ONE (18:13)
[2020-05-04] MEDS ORDERED: dexameTHASONE 4 MG/ML 1ML VIAL (J1100 PER 1MG) As Ordered ONE (18:16)
[2020-05-04] MEDS ORDERED: PHENYLephrine HCL 500 MCG/5 ML (100MCG/ML) SYRINGE (J2370) As Ordered ONE ×2 (18:22→18:27)
[2020-05-04 18:29] LABS: CORD GAS ABE A -2.6; CORD GAS ABE V -3.1; CORD GAS HCO3 A 24.3 MEQ/L; CORD GAS HCO3 V 23.4 MEQ/L; CORD GAS O2 SAT A 40.1 %; CORD GAS O2 SAT V 67.2 %; CORD GAS PCO2 A 50.4 mmHg; CORD GAS PCO2 V 47.2 mmHg; CORD GAS PH A 7.301 UNITS; CORD GAS PH V 7.313 UNITS; CORD GAS PO2 V 28.9 mmHg; CORD GAS SBC V 21.2 MEQ/L; CORD GAS TCO2 A 25.8 MEQ/L; CORD GAS TCO2 V 24.8 MEQ/L
[2020-05-04] MEDS ORDERED: OXYTOCIN DRIP 30 UNITS in IV 1 EA IV SCH (18:47)
[2020-05-04] MEDS ORDERED: SCOPOLAMINE 1MG TRANSDERMAL PATCH TOP ONE (19:00)
[2020-05-04] MEDS ORDERED: RHOGAM 300 MCG (1500 IU) INJ (J2790) IM SCH (19:00)
[2020-05-04] MEDS ORDERED: MEASLES,MUMPS,RUBELLA VACCINE INJ (MMR-II) (90707) SC SCH (19:00)
[2020-05-04] MEDS ORDERED: AMPICILLIN SOD 1 GM in D5W MINI-BAG PLUS 50 ML IV SCH (20:00)
--- NOTE | 2020-05-04 21:04 | HPE ---
DATE OF ADMISSION: 05/04/2020 Sindy is a 24-year-old female 2, para 0-0-1-0 who is with an estimated date of confinement (EDC) of 06/17/2020, EGA 34 weeks' gestation who is receiving care via pot annealer program. The patient presented to labor and delivery with complaints of contractions every 4-5 minutes and bleeding. As per the patient, she has been experiencing contraction for the last week or two which has gotten worse. She also gives the history of leaking fluid. She was never evaluated for the above complaint. However, today her bleeding has gotten worse and her pain has gotten more severe. Upon further evaluation in labor and delivery, she was found to be 4 cm 100% effaced, fetus at -3 station in the vertex position. In the computer she, was evaluated for possible herpes infection. Her IgM was equivocal. She does give a history of cold sores in her mouth and unsure if the lesion she has had in her vagina was active herpes. She was never treated for herpes infection. Her full history reviewed, as well as the partial record we have from the pot annealer. The patient's blood type was B+ positive. We do not have hepatitis or HIV status on this patient. She did not have a one-hour sugar testing. PAST MEDICAL HISTORY: Denies. PAST SURGICAL HISTORY: Denies. SOCIAL HISTORY: The patient has a history of positive drug use, but denies any alcohol. REVIEW OF SYSTEMS: Unremarkable. FAMILY HISTORY: Unremarkable. PHYSICAL EXAMINATION: Normal-appearing female in no acute distress. HEENT: Grossly within normal limits. Abdomen: Soft, nontender, nondistended. Gravid. Extremities: No clubbing, cyanosis or edema. Vaginal exam: Gross vaginal bleeding, but not profuse on digital exam she was found to be 100% effaced, 4 cm dilated, fetus at -3 station. Tracing reviewed, category one tracing with contractions every 4-5 minutes. The patient is also moving all over the bed, unable to keep the monitor for any extended period of time. ASSESSMENT: Intrauterine at 34 weeks' gestation. GBS status unknown. Active labor. No evidence of rupture of membrane, vaginal spotting most likely secondary to labor. 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 PLAN: The patient and her partner counseled extensively given that she had an equivocal testing done in February for herpes simplex virus (HSV) 1 and 2 and her prior history of oral herpes, we did discuss the risk and benefits of having a recent herpes infection and the mode of delivery. The patient and her partner wishes to proceed with section if labor cannot be stopping. The likelihood of stopping her labor also discussed which is minimal at this point, but we will consider magnesium sulfate, as well as IV fluid hydration and betamethasone as there are no signs of infection. The patient fully understand and aware of the risk of both vaginal and section, as well as delivery. She is aware that the baby will be in the NICU at the very least 2-3 weeks. A neonatology consult also obtained.
[2020-05-05] VITALS (7 sets, daily range): BP systolic 97–108; BP diastolic 51–61
[2020-05-05] MEDS: PRENATAL VITAMINS CHEWABLE TABLET PO SCH (08:10)
[2020-05-05 08:12] LABS: HEMATOCRIT 34.9 % (36.0-47.0); HEMOGLOBIN 11.8 g/dl (12.0-15.5); MEAN CORPUSCULAR HEMOGLOBIN 31.8 pg (27.0-33.0); MEAN CORPUSCULAR HGB CONC 33.8 g/dl (32.0-36.5); MEAN CORPUSCULAR VOLUME 94.1 fl (80.0-96.0); PLATELET COUNT, AUTOMATED 201 10^3/uL (150-450); RED BLOOD COUNT 3.71 10^6/uL (4.00-5.40); WHITE BLOOD COUNT 21.1 10^3/uL (4.0-10.0)
[2020-05-05] MEDS: PERCOCET 5MG/325MG TAB PO PRN ×2 (14:07→21:51)
[2020-05-05] MEDS: DOCUSATE SODIUM 100 MG CAP PO PRN (21:50)
[2020-05-06 02:16] VITALS: BP 101/53
[2020-05-06 05:50] VITALS: BP 100/57
[2020-05-06 06:08] LABS: HSV TYPE I IgG SPECIFIC <0.91 index (0.00-0.90); HSV TYPE II IgG SPECIFIC <0.91 index (0.00-0.90)
[2020-05-06] MEDS: PRENATAL VITAMINS CHEWABLE TABLET PO SCH (07:38)
[2020-05-06] MEDS: IBUPROFEN 800 MG TAB PO PRN ×2 (07:39→19:59)
--- NOTE | 2020-05-06 10:21 | RO ---
DATE OF PROCEDURE: 05/04/2020 Sindy is a 24-year-old female, 2, para 0-0-1-0, who was admitted at 34 weeks gestation in active labor. She has a history of recent herpes infection. At this point given the history of herpes infection, she was counseled extensively and the risks and benefits were discussed. The patient and her partner opt to proceed with delivery via primary section. She also broke through magnesium sulfate to help stop her labor. PREOPERATIVE DIAGNOSES: 1. Active labor. 2. Recent HSV infection. POSTOPERATIVE DIAGNOSES: 1. Active labor. 2. Recent HSV infection. PROCEDURE: Primary low transverse section. SURGEON: Dr. pAolinar Larsen JAIL KEEPER: Cathleen Crowe CNM ANESTHESIA: Spinal. COMPLICATIONS: None. ESTIMATED BLOOD LOSS: 500 mL. FINDINGS: Live male infant in occiput anterior position. Apgars 8, 6 and 9. weight 5 pounds 5 ounces. Placenta removed manually intact. Three-vessel cord. Normal-appearing tubes and ovaries. DESCRIPTION OF PROCEDURE: After obtaining informed consent, the patient was taken to the operating room where spinal anesthetic was found to be adequate. She was then draped and prepped in the usual sterile fashion in the supine position. At this point, a Pfannenstiel incision was made with the help of Cathleen Crowe. The incision was carried down to the fascia. Fascia was incised in midline fashion and carried through laterally. Superior aspect of the fascia was grasped with two Gonzalo clamps, tented off and dissected off the rectus muscles sharply. The inferior aspect was dissected off in a similar fashion. Rectus muscles were midline fashion. Peritoneum identified. Peritoneal cavity entered bluntly. Superior and inferior dissection of peritoneum was then done with good visualization of the bladder. At this point, a Mobius skin retractor was placed. A low-transverse uterine incision was made. The was delivered in atraumatic fashion. The nose and mouth bulb suctioned. Cord doubly clamped and cut. The infant was handed over to the awaiting warmer. Cord blood and cord gas was sent. Placenta removed manually. Uterus cleared of all clot and debris. Uterine incision was then repaired in two separate layers of #0 Vicryl sutures. Pelvis copiously irrigated with normal saline and suctioned out. Attention turned to the peritoneum which was closed in running fashion using #2-0 Vicryl. Fascia closed in a running fashion using #0 Vicryl sutures int two separate layers. All superficial bleeders were coagulated. The skin was reapproximated in subcuticular fashion using #3-0 Vicryl on a Esequiel. Steri-Strips placed. The patient tolerated the procedure well. She was then transferred to recovery room in stable condition.
[2020-05-06] MEDS: PERCOCET 5MG/325MG TAB PO PRN (14:09)
[2020-05-06 18:00] VITALS: BP 109/54
[2020-05-06] MEDS ORDERED: BISACODYL 10 MG SUPP PR PRN (18:15)
[2020-05-06] MEDS: DOCUSATE SODIUM 100 MG CAP PO PRN (19:58)
[2020-05-07] MEDS: IBUPROFEN 800 MG TAB PO PRN ×2 (04:20→12:46)
[2020-05-07 06:00] VITALS: BP 103/60
[2020-05-07] MEDS: PRENATAL VITAMINS CHEWABLE TABLET PO SCH (12:46)
[2020-05-07] MEDS ORDERED: PERCOCET PO (13:22)
[2020-05-07] MEDS ORDERED: IBUP80TA PO (13:22)
--- NOTE | 2020-05-08 09:02 | OBDS ---
[facility] Obstetrical Discharge Sum. Obstetrical Discharge Summary Coagulating Bath Mixer/Provider: Apolinar Larsen DO Date: May 07, 2020 Time: 14:00 : 1 Term: 0 Pre-term: 1 Abortions: 0 Livin VDRL: Non-Reactive Rh: Negative Rubella: Immune Anesthesia: Regional Anesthesia A/P, Post Course List any complications Admission diagnosis: labor at 34 weeks; History of herpes lesions in the third trimester desires delivery via c/s. Discharge diagnosis: Same Condition at Discharge: [Stable] Discharge Instructions: [Nothing in the vagina for 6 weeks. Call if severe blee ding, pain or temp > 101] Activity: [as tolerated ] Diet: [regular] Medications: [see list] Follow-up: [2 weeks for incision check] Other: Apolinar Larsen DO May 08, 2020 09:02
== END 2020-05-07 16:25 | disposition home or self-care (01) | DRG 772 ==
LOC: M LDO 13:43 → M LDI 14:12 → M OBS 20:24
PROVIDERS: ADMIT Obstetrics & Gynecology; ATTEND Obstetrics & Gynecology
PROC: 10D00Z1 Extraction of Products of Conception, Low, Open Approach (ICD-10-PCS; principal; 2020-05-04 17:45)
DX: O60.23X0 Term delivery with preterm labor, third trimester, not applicable or unspecified (principal); O98.32 Other infections with a predominantly sexual mode of transmission complicating childbirth; Z3A.34 34 weeks gestation of pregnancy; A63.0 Anogenital (venereal) warts; A60.09 Herpesviral infection of other urogenital tract; Z37.0 Single live birth